=== PATIENT | female | born 1970 | race African-American/Black ===

== ENCOUNTER 2025-11-16 12:54 | Emergency (ER) | payer BC, SELFPAY ==
--- OUTSIDE RECORDS SUMMARY | 2025-08-31 05:00 | XMS_ITS ---
Author Organization [employer]. Address [address] [facility] [place] [address] Care Team Providers Care Beauty Director Name Role Phone Klaus Marks Primary Care Provider Fernandomitchel Brownlee, Curt Kevin [phone] REASON FOR VISIT pulm new Encounters Encounter Location Date Provider Diagnosis [facility] [address] [facility], FOURTH FLOOR [place] [address] 08/31/2025 Curt Brownlee Plan Of Treatment No Information Progress Notes * Kseina SAGE TDOB: 2 (55 yo F)Acc No.[id number]:08/31/2025 Progress Notes Patient: Derek Ksenia OLIVER :?Curt Brownlee MDDOB:1970???Age:55 Y ???Sex:FemaleDate:08/31/2025Phone:[phone]:[address] [place], [place] [id number]:Klaus Marks Subjective: * Chief Complaints: * 1 . Pulm new. * Medical History: Objective: * Vitals: Assessment: Plan: * Treatment: * Billing Information: * Visit Code: * Procedure Codes: * Electronic signature of Curt Brownlee MD on 11/16/2025 at 01:51 PM ESTSign off status: Pending * Provider: Derek Brownlee MD Date: 1 Generated for Printing/Faxing/eTransmitting on:?11/16/2025 01:51 PM EST
--- OUTSIDE RECORDS SUMMARY | 2025-11-04 09:58 | XMS_ITS | Encounter Summary ---
Author Organization [facility] Address [facility] [place] [address] Care Team Providers Care Home Health Specialist Name Role Phone Unavailable Primary Care Provider Unavailabl e Source Comments In the event this information is protected by the Federal Confidentiality of Alcohol and Drug AbusePatient Records regulations: The Federal rules restrict any use of the information to criminally investigate or prosecute any alcohol or drug abuse patient.[facility] Reason for Visit * Diagnostic Procedure Only (Routine) - ClosedSpecialtyDiagnoses / Procedures Referred By ContactReferred To ContactBR IMAGING Diagnoses Encounter for screening mammogram for malignant neoplasm of breast Procedures EMELYN SCREENING W BLU SCREENING DIGITAL BREAST TOMOSYNTHESIS BI SCREENING MAMMOGRAPHY BI 2-[place] [address] [place] [address] Phone: tel: fax: [facility] [place] [address] Referral IDStatusReasonStart DateExpiration DateVisits RequestedVisits [id number] Auto-Generated Referral Encounter Details DateTypeDepartmentCare Team (Latest Contact Info)Wanbgfkpbss94/17/2025 9:58 AM EST - 11/04/2025 11:59 PM ESTHospital Encounter Mammography [address] [place] [address] Encounter for screening mammogram for malignant neoplasm of breast [Z12.31] Discharge Disposition: Home Social History Tobacco UseTypesPacks/DayYears UsedDateSmoking Tobacco: Never AssessedArea Deprivation IndexAnswerDate RecordedNational Score (1-100), lower number is lower zapa211111/02/2025State Score (1-10), lower number is lower uezn36901/03/2025 Data from: https://www.neighborhoodatlas.medicine.[facility].edu/. Last address used for [id number]11/02/2025CommentsNoSex and Gender InformationValueDate RecordedSex Assigned at BirthNot on fileLegal SexFemale 08/17/2025 2:46 PM EDTGender IdentityNot on fileSexual OrientationNot on file documented as of this encounter Medications at Time of Discharge MedicationSigDispense QuantityRefillsLast FilledStart DateEnd Date diphenhydrAMINE-Acetaminophen (TYLENOL PM EXTRA STRENGTH) 25-500 mg tab Take 1 tablet by mouth.02/10/2020 albuterol HFA (PROVENTIL HFA, VENTOLIN HFA) 90 mcg/actuation inhaler Inhale 2 puffs as instructed every 6 hours as needed.09/17/2024 amLODIPine (NORVASC) 5 mg tablet Take 5 mg by mouth.08/28/2018 aspirin 325 mg tablet Take 325 mg by mouth once daily.04/21/2013 belimumab (BENLYSTA) 200 mg/mL auto-injector Inject 200 mg subcutaneously one time a week.05/12/2025 budesonide (PULMICORT) 0.25 mg/2 mL nebulizer solution 01/24/2017 cevimeline (EVOXAC) 30 mg capsule Take 30 mg by mouth.01/14/2020 Cholecalciferol, Vitamin D3, 25 mcg (1,000 unit) cap Take 1 capsule by mouth once daily.08/20/2017 clobetasol (TEMOVATE) 0.05 % cream Apply to affected area.06/04/2017 diclofenac, EC, (VOLTAREN) 50 mg EC tablet Take 50 mg by mouth.01/28/2025 estradiol (ESTRACE) 0.01 % (0.1 mg/gram) vaginal cream 07/10/2024 fluticasone-salmeterol (ADVAIR DISKUS) 250-50 mcg/dose inhaler Inhale 1 puff as instructed once daily.12/10/2019 folic acid 1 mg tablet once daily.04/28/2011 furosemide (LASIX) 20 mg tablet Take 20 mg by mouth once daily.07/14/2024 gabapentin (NEURONTIN) 300 mg capsule Take 300 mg by mouth daily at bedtime.01/08/2024 hydrocortisone 2.5 % cream Apply to affected area.02/20/2017 hydrOXYchloroQUINE (PLAQUENIL) 200 mg tablet Take 400 mg by mouth once daily.02/10/2020 ipratropium (ATROVENT) 0.02 % nebulizer solution 0.5 mg.02/20/2017 lisinopril (ZESTRIL) 40 mg tablet 03/24/2025 multivitamin with minerals (VISION/OPTIGEN) tablet Take 1 tablet by mouth.02/20/2017 mycophenolate Mofetil (CELLCEPT) 500 mg tablet 500 mg.06/06/2024 nystatin (MYCOSTATIN) 100,000 unit/mL suspension 500,000 Units.11/13/[address] (PROTONIX) 40 mg tablet TAKE 1 TABLET (40 MG TOTAL) TWICE A DAY (TAKE 30 MINUTES BEFORE BREAKFAST AND DINNER)11/22/2017 Phentermine HCl 37.5 mg tablet 10/20/2024 predniSONE (DELTASONE) 5 mg tablet 5 mg once daily.02/25/2020 senna-docusate (SENNA-S) 8.6-50 mg per tablet Take 2 tablets by mouth.12/12/2024 sulfamethoxazole-trimethoprim (BACTRIM DS) 800-160 mg per tablet Take 1 tablet by mouth every 48 hours. tretinoin (RETIN-A) 0.05 % cream APPLY A PEA-SIZED AMOUNT TO HANDS AT DFXUDTN9706/05/2022 ubrogepant (UBRELVY) 100 mg tablet Take 100 mg by mouth.3documented as of this encounter Plan of Treatment DateTypeDepartmentCare Team (Latest Contact Info)Fbczyesbqnh30/30/2025 9:00 AM ESTOffice Visit OB/Gynecology [address] [place] [address] [place] [address] [place] [address] annual papdocumented as of this encounter Procedures Procedure NamePriorityDate/TimeAssociated DiagnosisCommentsMAM SCREENING W BLU Ogkipdn5711/04/2025 10:21 AM EST Encounter for screening mammogram for malignant neoplasm of breast documented in this encounter Results * EMELYN SCREENING W BLU (11/04/2025 10:21 AM EST)Anatomical RegionLaterality ModalityBreastOtherSpecimen (Source)Anatomical Location / LateralityCollection Method / VolumeCollection TimeReceived Time11/04/2025 10:21 AM EST Impressions 11/07/2025 8:00 AM EST IMPRESSION: There is no mammographic evidence of malignancy. Routine screening mammogram is recommended. Annual mammogram will be due in 1 year. BI-RADS Category 2: Benign RISK: Due to the reported patient's history, the patient's estimated lifetime risk of developing breast cancer cannot be assessed at this time. We encourage all patients to talk with their providers about their risk assessment, further recommendations for managing breast health, and appropriate supplemental screening options if the patient has dense breast tissue. Interpreting Radiologist: Yuki Burton M.D. Electronically signed on: 11/07/2025 Hat Blocking Machine Operator: [email or web address] Transcribe Date/Time: Nov 04 2025 10:03A Dictated by: YUKI BURTON MD This examination was interpreted and the report reviewed and electronically signed by: YUKI BURTON MD on Nov 07 2025 ??7:54AM ??EST Narrative 11/07/2025 8:00 AM EST * * *Final Report* * * DATE OF EXAM: Nov 04 2025 10:21AM ?? CHW ?? [id number] ??- ??EMELYN SCREENING W BLU ??/ PROCEDURE REASON: Encounter for screening mammogram for malignant neoplasm of breast ? * * * * Physician Interpretation * * * * RESULT: [facility] [address] [place] [address] #[id number] - EMELYN SCREENING W BLU HISTORY: 55 year-old patient presents for screening. Patient is asymptomatic. The patient has the following personal history of breast cancer: ??breast cancer in the right breast in 2013. COMPARISON STUDIES: The present examination has been compared to prior imaging studies dated 11/09/2022 (mammography), 02/15/2023 (mammography), 11/14/2023 (mammography), 10/24/2024 (mammography) and 03/27/2025 (mammography). MAMMOGRAM TECHNIQUE: The study was acquired using full field digital technology and interpreted from soft copy. Digital Breast Tomosynthesis (DBT) images were obtained and used to assist in the interpretation of this examination. MAMMOGRAM FINDINGS: There are scattered areas of fibroglandular density. There are no significant interval changes. The patient is status post right lumpectomy with post operative changes. No suspicious mass, calcifications, or other abnormality is seen in either breast. Procedure Note Provider, [facility] - 11/07/2025 * * *Final Report* * * DATE OF EXAM: Nov 04 2025 10:21AM [facility] [address] - [facility] SCREENING W BLU / PROCEDURE REASON: Encounter for screening mammogram for malignant neoplasm of breast * * * * Physician Interpretation * * * * RESULT: [facility] [address] [place] [address] #[id number] - [facility] SCREENING W BLU HISTORY: 55 year-old patient presents for screening. Patient is asymptomatic. The patient has the following personal history of breast cancer: breast cancer in the right breast in 2012. COMPARISON STUDIES: The present examination has been compared to prior imaging studies dated 11/09/2022 (mammography), 02/15/2023 (mammography), 11/14/2023 (mammography), 10/24/2024 (mammography) and 03/27/2025 (mammography). MAMMOGRAM TECHNIQUE: The study was acquired using full field digital technology and interpreted from soft copy. Digital Breast Tomosynthesis (DBT) images were obtained and used to assist in the interpretation of this examination. MAMMOGRAM FINDINGS: There are scattered areas of fibroglandular density. There are no significant interval changes. The patient is status post right lumpectomy with post operative changes. No suspicious mass, calcifications, or other abnormality is seen in either breast. IMPRESSION IMPRESSION: There is no mammographic evidence of malignancy. Routine screening mammogram is recommended. Annual mammogram will be due in 1 year. BI-RADS Category 2: Benign RISK: Due to the reported patient's history, the patient's estimated lifetime risk of developing breast cancer cannot be assessed at this time. We encourage all patients to talk with their providers about their risk assessment, further recommendations for managing breast health, and appropriate supplemental screening options if the patient has dense breast tissue. Interpreting Radiologist: Yuki Burton M.D. Electronically signed on: 11/07/2025 Hat Blocking Machine Operator: [email or web address] Transcribe Date/Time: Nov 04 2025 10:03A Dictated by: YUKI BURTON MD This examination was interpreted and the report reviewed and electronically signed by: YUKI BURTON MD on Nov 07 2025 7:54AM EST Authorizing ProviderResult TypeResult StatusHalle Dick MDMAM-PAMAFinal Result documented in this encounter Visit Diagnoses Diagnosis Encounter for screening mammogram for malignant neoplasm of breast Other screening mammogram documented in this encounter
[2025-11-16 13:00] VITALS: BP 126/78; PULSE 105; TEMP 37.1; O2SAT 100; BMI 32.6
--- NOTE | 2025-11-16 13:13 | ED.GENADUL1 ---
HPI HPI - General Adult General Chief complaint: Abdominal Pain Stated complaint: URINARY ISSUES, R SIDED BACK PAIN, FEVER Time Seen by Provider: 11/16/25 12:57 Source: patient Mode of arrival: walk-in Limitations: no limitations History of Present Illness HPI narrative: 55-year-old female presents for right flank pain. She is worried about having a kidney infection or kidney stone. Symptoms started a week ago. She states she has had temperature of 100.5 degrees at home. No gross hematuria and no left-sided pain. No abdominal pain or vomiting. Related Data Previous Rx's ?Medication ?Instructions ?Recorded ibuprofen 800 mg tablet 800 mg PO Q8H PRN pain #20 tabs 11/16/25 methocarbamol 500 mg tablet 500 mg PO Q8H PRN pain #20 tabs 11/16/25 Allergies Allergy/AdvReac Type Severity Reaction Status Date / Time No Known Drug Allergies Allergy Verified 11/16/25 12:59 Opioid HPI Opioid Management Most Recent Opioid Data: Last Pain Scale 7 Today, 14:32 Last MAR Pain Assessment Today, 14:32 Review of Systems ROS Narrative A ten point review of systems is negative except as noted above. PFSH PFSH Social History Little interest or pleasure in doing things: not at all Feeling down, depressed, or hopeless: not at all Exam Narrative Exam Narrative: Nurses note and vital signs reviewed General:The patient appears well and in no apparent distress. Patient is resting comfortably on cart. Skin:Warm, dry, no pallor noted.There is no rash noted. Head:Normocephalic, atraumatic Eye: Normal conjunctiva, no drainage Ears, Nose, Mouth, and Throat: oral mucosa is moist. Nares patent. Cardiovascular:Regular Rate and Rhythm Respiratory:Patient is in no distress, no accessory muscle use, lungs are clear to auscultation, no wheezing, rales or rhonchi Back:non-tender, no CVA tenderness bilaterally to percussion. No bruise or rash. GI: Soft and nontender Musculoskeletal: The patient has no evidence of calf tenderness, no pitting edema, symmetrical pulses noted bilaterally Neurological:A&O, normal speech Psychiatric:Cooperative Constitutional Vital Signs, click to edit/add: Last Vital Signs Temp 98.7 F 11/16/25 13:00 Pulse 105 H 11/16/25 13:00 Resp 20 11/16/25 13:00 BP 126/78 11/16/25 13:00 Pulse Ox 100 11/16/25 13:00 O2 Del Method Room Air 11/16/25 13:00 Course Vital Signs Vital signs: Vital Signs Temperature 98.7 F 11/16/25 13:00 Pulse Rate 105 H 11/16/25 13:00 Respiratory Rate 20 11/16/25 13:00 Blood Pressure 126/78 11/16/25 13:00 Pulse Oximetry 100 11/16/25 13:00 Oxygen Delivery Method Room Air 11/16/25 13:00 Temperature 98.7 F 11/16/25 13:00 Pulse Rate 105 H 11/16/25 13:00 Respiratory Rate 20 11/16/25 13:00 Blood Pressure 126/78 11/16/25 13:00 Pulse Oximetry 100 11/16/25 13:00 Oxygen Delivery Method Room Air 11/16/25 13:00 Medical Decision Making MDM Narrative Medical decision making narrative: CAT scan shows stone in the left kidney and none on the right side where her symptoms are. The rest of her workup is negative and she will be treated symptomatically. Treatment diagnosis and follow-up were discussed with the patient. Differential Diagnosis Differential Diagnosis: Kidney stone, UTI, pyelonephritis, muscle strain Lab Data Lab results reviewed: Yes I reviewed the patient's lab results Labs: Lab Results 11/16/25 11/16/25 Range/Units 13:25 13:49 WBC 4.0 (4.0-11.0) 10^3/uL RBC 4.07 L (4.20-5.40) 10^6/uL Hgb 11.3 L (12.0-16.0) g/dL Hct 34.2 L (36.0-48.0) % MCV 84.0 (81.0-99.0) fL MCH 27.8 (26.7-34.0) pg MCHC 33.0 (29.9-35.2) g/dL RDW 12.9 (11.0-15.0) % Plt Count 289 (150-450) 10^3/uL MPV 9.1 L (9.5-13.5) fL Neut % (Auto) 61.0 (43.0-75.0) % Lymph % (Auto) 22.7 (20.5-60.0) % Heard % (Auto) 14.4 H (1.7-12.0) % Eos % (Auto) 1.3 (0.9-7.0) % Baso % (Auto) 0.3 (0.2-2.0) % Neut # (Auto) 2.4 (1.4-6.5) 10^3/uL Lymph # (Auto) 0.9 L (1.2-3.8) 10^3/uL Heard # (Auto) 0.6 (0.3-0.8) 10^3/uL Eos # (Auto) 0.1 (0.0-0.7) 10^3/uL Baso # (Auto) 0.0 (0.0-0.1) 10^3/uL Abs Immat Gran (auto) 0.01 (0.00-0.03) 10^3/uL Imm/Tot Granulo (auto) 0.3 (0.0-0.5) % Sodium 144 (136-145) mmol/L Potassium 3.8 (3.5-5.1) mmol/L Chloride 109 H (98-107) mmol/L Carbon Dioxide 27.1 (21.0-32.0) mmol/L Anion Gap 11.7 BUN 7.0 (7.0-18.0) mg/dL Creatinine 0.67 (0.55-1.02) mg/dL Est GFR ( Amer) >60 (>=60 mL/min/1.73m^2) Est GFR (Non-Af Amer) >60 (>=60 mL/min/1.73m^2) BUN/Creatinine Ratio 10.4 Glucose 106 (74-106) mg/dL Calcium 8.7 (8.5-10.1) mg/dL Urine Color Lt. yellow (YELLOW) Urine Clarity Clear (CLEAR) Urine pH 6.0 (5.0-9.0) Ur Specific [place] 1.015 (1.005-1.025) Urine Protein Trace (NEG/TRACE) mg/dL Urine Glucose (UA) Negative (NEGATIVE) mg/dL Urine Ketones Negative (NEGATIVE) mg/dL Urine Occult Blood Trace-i (NEGATIVE) Urine Nitrite Positive A (NEGATIVE) Urine Bilirubin Negative (NEGATIVE) Urine Urobilinogen 0.2 (0.2-1.0) EU/dL Ur Leukocyte Esterase Negative (NEGATIVE) Urine RBC 0-2 (0-2) #/HPF Urine WBC None seen (NONE SEEN) #/HPF Ur Squamous Epith Cells Few A (NONE/RARE) #/LPF Urine Crystals None seen (None Seen) #/HPF Urine Bacteria Trace A (NONE SEEN) #/HPF Urine Casts None seen (NONE SEEN) #/LPF Urine Mucus Trace A (NONE SEEN) Ur Culture Indicated? No Imaging Data CT scan - abdomen: Radiologist's impression: ITS Impressions Abdomen/Pelvis CT 11/16/25 14:52 IMPRESSION: No bowel obstruction or obstructive uropathy. There is a 1 cm stone in the left renal collecting system. There is a normal appendix in the right lower quadrant. Impression dictated by: Mati Bhandari M.D. 11/16/2025 3:16 PM Dictation Location: [employer] Payment Electronically authenticated by: [id number] Y Date: 11/16/2025 15:16 Discharge Plan Discharge Chief Complaint: Abdominal Pain Clinical Impression: Right flank pain Patient Disposition: Home, Self-Care Time of Disposition Decision: 15:25 Condition: Good Mode of Transportation: Private Vehicle Prescriptions / Home Meds: New methocarbamol 500 mg tablet 500 mg PO Q8H PRN (Reason: pain) Qty: 20 0RF ibuprofen 800 mg tablet 800 mg PO Q8H PRN (Reason: pain) Qty: 20 0RF Print Language: German Instructions: Flank Pain (ED) Referrals: Physician,Non-Staff, MD [Primary Care Provider] - 1 week
[2025-11-16 13:31] LABS: Hematocrit 34.2 % (36.0-48.0); Hemoglobin 11.3 g/dL (12.0-16.0); Immature Granulocytes Abs Auto 0.01 10^3/uL (0.00-0.03); Immature Granulocytes Pct Auto 0.3 % (0.0-0.5); Lymphocytes Absolute Auto 0.9 10^3/uL (1.2-3.8); Mean Corpuscular HGB Conc 33.0 g/dL (29.9-35.2); Mean Corpuscular Hemoglobin 27.8 pg (26.7-34.0); Mean Corpuscular Volume 84.0 fL (81.0-99.0); Platelet Count 289 10^3/uL (150-450); Red Blood Count 4.07 10^6/uL (4.20-5.40); White Blood Count 4.0 10^3/uL (4.0-11.0)
[2025-11-16 13:40] LABS: Anion Gap 11.7; Blood Urea Nitrogen 7.0 mg/dL (7.0-18.0); Calcium 8.7 mg/dL (8.5-10.1); Carbon Dioxide 27.1 mmol/L (21.0-32.0); Chloride 109 mmol/L (98-107); Estimated GFR (African America >60 (>=60 mL/min/1.73m^2); Estimated GFR (Non-African Ame >60 (>=60 mL/min/1.73m^2); Glucose 106 mg/dL (74-106); Potassium 3.8 mmol/L (3.5-5.1); Sodium 144 mmol/L (136-145)
--- OUTSIDE RECORDS SUMMARY | 2025-11-16 13:51 | XMS_ITS | Patient Health Record ---
Author Organization [employer]. Address [address] [facility] [address] [place] [address] Care Team Providers Care Principal Engineer Name Role Phone Klaus Marks Primary Care Provider Elda Brownlee, Nov [phone] Reason For Referral No Information Plan Of Treatment No Information
--- OUTSIDE RECORDS SUMMARY | 2025-11-16 13:51 | XMS_ITS | Clinical Summary ---
Author Organization [facility] Address [address] [place] [address] Care Team Providers Care Medical Art Therapist Name Role Phone Unavailable Primary Care Provider Unavailabl e Allergies No known active allergies Encounters DateTypeDepartmentCare EfbcBhynllearos09/20/2025 3:15 PM ESTAncillary Procedure [facility] [address] [place] [phone] Pelvic and perineal pain10/08/20255879Qnyxiz41/19/2025 3:30 PM ESTAncillary Procedure [facility] [address] [place] [phone] 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; Systemic lupus erythematosus, unspecified (HCC); Glomerular disease in systemic lupus erythematosus (HCC)10/07/2025Travel 10/06/2025Travelfrom Last 3 Months Social History Tobacco UseTypesPacks/DayYears UsedDateSmoking Tobacco: Never Assessed CommentsUnknownSex and Gender InformationValueDate RecordedSex Assigned at Not on fileLegal QzwUisobk91/30/2025 12:27 PM EDTGender IdentityNot on file Sexual OrientationNot on file Plan of Treatment Health MaintenanceDue DateLast DoneCommentsCT Ntdwvkpirlkr1972FIT-DNA 1970FOBT08/27/19724277Stqwpnqwwdamh31/09/6483XDL66/ Mzvwnwtzahd27Colorectal Cancer Zkgoahlwf09/13/2025Mammogram 605/07/2025, 03/27/2025, 10/24/2024, Additional history existsPap Smear , 06/19/2024, 06/19/2024, Additional history existsCervical Cancer Ulfckakye84/01/2029HPV/Xvfuex18, 10/17/2021Influenza CpdllcoXzjhplntr94/10/2025, 11/06/2023, 08/15/2022, Additional history exists Pneumococcal Vaccine: Pediatrics (0 to 5 Years) and At-Risk Patients (6 to 64 Years)Aged OutNo longer eligible based on patient's age to complete this topic Procedures Procedure NamePriorityDate/TimeAssociated DiagnosisCommentsCT ABDOMEN PELVIS W IV JSOIRZITWpbjdry16/20/2025 3:23 PM EST Pelvic and perineal pain DEXA BONE DFCRRSSIktlwkm59/19/2025 3:58 PM EST 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 Systemic lupus erythematosus, unspecified (HCC) Glomerular disease in systemic lupus erythematosus (HCC) from Last 3 Months Results * CT abdomen pelvis w IV contrast (10/08/2025 3:23 PM EST)Anatomical Region LateralityModalityBody, Pelvis, AbdomenComputed TomographySpecimen (Source) Anatomical Location / LateralityCollection Method / VolumeCollection Time Received Time10/09/2025 9:42 AM EST Impressions 10/09/2025 9:48 AM EST No acute process in the abdomen/pelvis. Nonobstructing 8 mm left lower pole calculus. Fluid in the distal esophagus, suggestive of reflux. ELECTRONICALLY SIGNED BY: Gregg Fang MD Narrative 10/09/2025 9:48 AM EST HISTORY: Pelvic and perineal pain. TECHNIQUE: CT of the abdomen and pelvis was performed using standard technique with intravenous contrast, scanning from just above the dome of the diaphragm to the symphysis pubis. ??Including delayed images through the kidneys. Including sagittal and coronal reconstructions on both phases. All CT scans at this facility use dose modulation, iterative reconstruction, and/or weight based dosing when appropriate to reduce radiation dose to as low as reasonably achievable. COMPARISON: None. RESULT: Liver: No mass or lesion. Biliary: Gallbladder unremarkable. No biliary ductal dilation. Pancreas: No mass or duct dilation. Spleen: No mass or splenomegaly. ?? Adrenals: No mass. Kidneys: 8 mm calculus left lower pole. No hydronephrosis. Few small simple cysts. No suspicious lesions. Delayed phase imaging unremarkable. GI tract: Fluid in the distal esophagus, suggestive of reflux. No bowel dilation. No evidence for diverticulitis or appendicitis. Lymph nodes: No abdominal or pelvic lymphadenopathy. Mesentery/Peritoneum/Retroperitoneum: No ascites or mass. Vasculature: ??The celiac axis and SMA are patent. The portal vein and branches, splenic vein, SMV,and hepatic veins are patent. ??No abdominal aortic or iliac artery aneurysm. Pelvis: No significant free fluid. Uterus grossly unremarkable. Bladder decompressed. Clips or coils in the adnexal regions. Bones: No acute osseous findings. ?? Soft tissues: Unremarkable. Lower thorax: Scarring/atelectasis at the lung bases. Fluid within the distal esophagus, suggestiveof reflux. Procedure Note Gregg Fang MD - 10/09/2025 HISTORY: Pelvic and perineal pain. TECHNIQUE: CT of the abdomen and pelvis was performed using standardtechnique with intravenous contrast, scanning from just above the dome ofthe diaphragm to the symphysis pubis. Including delayed images throughthe kidneys. Including sagittal and coronal reconstructions on bothphases. All CT scans at this facility use dose modulation, iterativereconstruction, and/or weight based dosing when appropriate to reduceradiation dose to as low as reasonably achievable. COMPARISON: None. RESULT: Liver: No mass or lesion. Biliary: Gallbladder unremarkable. No biliary ductal dilation. Pancreas: No mass or duct dilation. Spleen: No mass or splenomegaly. Adrenals: No mass. Kidneys: 8 mm calculus left lower pole. No hydronephrosis. Few smallsimple cysts. No suspicious lesions. Delayed phase imaging unremarkable. GI tract: Fluid in the distal esophagus, suggestive of reflux. No boweldilation. No evidence for diverticulitis or appendicitis. Lymph nodes: No abdominal or pelvic lymphadenopathy. Mesentery/Peritoneum/Retroperitoneum: No ascites or mass. Vasculature: The celiac axis and SMA are patent. The portal vein andbranches, splenic vein, SMV, and hepatic veins are patent. No abdominalaortic or iliac artery aneurysm. Pelvis: No significant free fluid. Uterus grossly unremarkable. Bladder decompressed. Clips or coils in the adnexal regions. Bones: No acute osseous findings. Soft tissues: Unremarkable. Lower thorax: Scarring/atelectasis at the lung bases. Fluid within thedistal esophagus, suggestive of reflux. IMPRESSION: No acute process in the abdomen/pelvis. Nonobstructing 8 mm left lower pole calculus. Fluid in the distal esophagus, suggestive of reflux. ELECTRONICALLY SIGNED BY: Gregg Fang MD Authorizing ProviderResult TypeResult StatusBenjamin Petbellwood [facility] MDSH[facility] PROCEDURES Final Result * DEXA bone density (10/07/2025 3:58 PM EST)Anatomical RegionLateralityModality BodyDigital RadiographySpecimen (Source)Anatomical Location / Laterality Collection Method / VolumeCollection TimeReceived Time10/08/2025 11:14 AM EST Impressions 10/08/2025 11:15 AM EST Impression: Findings compatible with borderline mild/moderate osteopenia with borderline mild/moderate increased fracture risk. ELECTRONICALLY SIGNED BY: Trevor Morales M.D. 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 T score values for the lumbar spine, right femoral neck and left femoral neck were obtained. Comparison: None Findings: Value for the lumbar spine from L1-L4 is -0.4. Value for the right femoral neck is -1.5. Value for the left femoral neck is -1.4. Findings are compatible with borderline mild/moderate osteopenia with borderline mild/moderate increased fracture risk. No evidence of osteoporosis. 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 T score values for the lumbarspine, right femoral neck and left femoral neck were obtained. Comparison: None Findings: Value for the lumbar spine from L1-L4 is -0.4. Value for theright femoral neck is -1.5. Value for the left femoral neck is -1.4.Findings are compatible with borderline mild/moderate osteopenia withborderline mild/moderate increased fracture risk. No evidence ofosteoporosis. IMPRESSION: Impression: Findings compatible with borderline mild/moderate osteopeniawith borderline mild/moderate increased fracture risk. ELECTRONICALLY SIGNED BY: Trevor Morales M.D. Authorizing ProviderResult TypeResult StatusAmanMon Health Medical Center DXA PROCEDURES Final Result from Last 3 Months Insurance
--- OUTSIDE RECORDS SUMMARY | 2025-11-16 13:51 | XMS_ITS | Clinical Summary ---
Author Organization [facility] Address [address] [place], [place] [address] Care Team Providers Care Vice Investigator Name Role Phone Unavailable Primary Care Provider Unavailabl e Allergies No known active allergies Medications MedicationSigDispense QuantityRefillsLast FilledStart DateEnd DateStatus diphenhydrAMINE-Acetaminophen (TYLENOL PM EXTRA STRENGTH) 25-500 mg tab Take 1 tablet by mouth.02/10/2020Active albuterol HFA (PROVENTIL HFA, VENTOLIN HFA) 90 mcg/actuation inhaler Inhale 2 puffs as instructed every 6 hours as needed.4Active amLODIPine (NORVASC) 5 mg tablet Take 5 mg by mouth.08/28/2018Active aspirin 325 mg tablet Take 325 mg by mouth once daily.04/21/2013ctive belimumab (BENLYSTA) 200 mg/mL auto-injector Inject 200 mg subcutaneously one time a week.5Active budesonide (PULMICORT) 0.25 mg/2 mL nebulizer solution 01/24/2017Active cevimeline (EVOXAC) 30 mg capsule Take 30 mg by mouth.01/14/2020Active Cholecalciferol, Vitamin D3, 25 mcg (1,000 unit) cap Take 1 capsule by mouth once daily.08/20/2017Active clobetasol (TEMOVATE) 0.05 % cream Apply to affected area.06/04/2017Active diclofenac, EC, (VOLTAREN) 50 mg EC tablet Take 50 mg by mouth.5Active estradiol (ESTRACE) 0.01 % (0.1 mg/gram) vaginal cream 4Active fluticasone-salmeterol (ADVAIR DISKUS) 250-50 mcg/dose inhaler Inhale 1 puff as instructed once daily.12/10/2019Active folic acid 1 mg tablet once daily.04/28/2011ctive furosemide (LASIX) 20 mg tablet Take 20 mg by mouth once daily.07/14/2024ctive gabapentin (NEURONTIN) 300 mg capsule Take 300 mg by mouth daily at bedtime.01/08/2024ctive hydrocortisone 2.5 % cream Apply to affected area.02/20/2017Active hydrOXYchloroQUINE (PLAQUENIL) 200 mg tablet Take 400 mg by mouth once daily.02/10/2020Active ipratropium (ATROVENT) 0.02 % nebulizer solution 0.5 mg.02/20/2017Active lisinopril (ZESTRIL) 40 mg tablet 03/24/2025tive multivitamin with minerals (VISION/OPTIGEN) tablet Take 1 tablet by mouth.02/20/2017Active mycophenolate Mofetil (CELLCEPT) 500 mg tablet 500 mg.06/06/2024ctive nystatin (MYCOSTATIN) 100,000 unit/mL suspension 500,000 Units.11/13/[address] (PROTONIX) 40 mg tablet TAKE 1 TABLET (40 MG TOTAL) TWICE A DAY (TAKE 30 MINUTES BEFORE BREAKFAST AND DINNER)11/22/2017Active Phentermine HCl 37.5 mg tablet 10/20/2024ctive predniSONE (DELTASONE) 5 mg tablet 5 mg once daily.02/25/2020Active senna-docusate (SENNA-S) 8.6-50 mg per tablet Take 2 tablets by mouth.5Active sulfamethoxazole-trimethoprim (BACTRIM DS) 800-160 mg per tablet Take 1 tablet by mouth every 48 hours.Active tretinoin (RETIN-A) 0.05 % cream APPLY A PEA-SIZED AMOUNT TO HANDS AT BTRFBDJ5206/05/2022ctive ubrogepant (UBRELVY) 100 mg tablet Take 100 mg by mouth.3Active Encounters DateTypeDepartmentCare NcuqXxkdutepoex45/17/2025 9:58 AM EST - 11/04/2025 11:59 PM ESTHospital Encounter Mammography [address] [facility] [place] [address] Encounter for screening mammogram for malignant neoplasm of breast [Z12.31] Discharge Disposition: Home2025 3:00 PM EDTVisit (SP) Office Hematology/Oncology [address] [place] [address] Rhianna Jennings MD History of breast cancer (Primary Dx); Encounter for screening mammogram for malignant neoplasm of ltzzmy7808/26/2025 Travelfrom Last 3 Months Social History Tobacco UseTypesPacks/DayYears UsedDateSmoking Tobacco: Never AssessedArea Deprivation IndexAnswerDate RecordedNational Score (1-100), lower number is lower iyhy189411/02/2025State Score (1-10), lower number is lower vcck64901/03/2025 Data from: https://www.neighborhoodatlas.medicine.[facility].edu/. Last address used for g[address] [facility]11/02/2025CommentsNoSex and Gender InformationValueDate RecordedSex Assigned at BirthNot on fileLegal SexFemale 08/17/2025 2:46 PM EDTGender IdentityNot on fileSexual OrientationNot on file Last Filed Vital Signs Vital SignReadingTime TakenCommentsBlood Kkefcpkn236/5908/27/2025 3:09 PM EDT Okctd080008/27/2025 3:09 PM PRKZelnfqnqhjz20.4 ??C (97.6 ??F)2025 3:09 PM EDTRespiratory Ckbc6967 3:09 PM EDTOxygen Aawzqxyyjm41%2025 3:09 PM EDTreynaudsInhaled Oxygen Concentration--[place]08.8 kg (206 lb 12.7 oz) 2025 3:09 PM EDTwith uxsdbRknuon714.3 cm (5' 3.9 )2025 3:09 PM EDT with shoesBody Mass Index35.6108/27/2025 3:09 PM EDT Plan of Treatment DateTypeDepartmentCare Team (Latest Contact Info)Enwawtxtxjs25/30/2025 9:00 AM ESTOffice Visit OB/Gynecology [address] [place] [address] [place] [address] [place] [address] annual papHealth MaintenanceDue DateLast DoneCommentsCervical Cancer Screening 1983Anxiety Wltedhhqb44/09/1990Depression Bkcoetwoz71/09/1990HIV Screening 1990Hepatitis C Pipgvarsc59/09/1990DTaP,Tdap,Td Vaccine (1 - Tdap) 1991Hepatitis B Vaccine (1 of 3 - 19+ 3-dose series)1991CT Ljkeitddlmhd98/09/2017Cologuard (FIT-DNA)08/27/20173895Rptfwcevgna88/09/2017 Colorectal Cancer Lshumlcen21/09/2017Fecal Occult Blood2017Sigmoidoscopy 2017Covid-19 Vaccine (2 - Pfizer risk series)/1RSV Vaccine (1 - Risk 50-74 years 1-dose series)2022Influenza Vaccine (#1) 512/, 08/15/2022, 10/05/2021, Additional history existsMammogram Rfwonuhnh53/17/520023/, 03/27/2025, 10/24/2024, Additional history existsDiabetes Bwsqsllaa02/23/117164/, 05/11/2025, 02/20/2025, Additional history existsLipid Qzklxomyr94/06/649719/04/2023Shingrix VaccineCompleted 03/10/2023, 01/09/2023neumococcal Vaccine: 50+Qatxkjpmv27/24/2025, 05/15/2012, 11/19/2005 Procedures Procedure NamePriorityDate/TimeAssociated DiagnosisCommentsMAM SCREENING W BLU Wbequdu2411/04/2025 10:21 AM EST Encounter for screening mammogram for malignant neoplasm of breast from Last 3 Months Results * EMELYN SCREENING W BLU (11/04/2025 [...] patient has dense breast tissue. Interpreting Radiologist: Lucretia Burton M.D. Electronically signed on: 11/07/2025 Evidence Specialist: SHAHZAD Transcribe Date/Time: Nov 04 2025 10:03A Dictated by: LUCRETIA BURTON MD This examination was interpreted and the report reviewed and electronically signed by: LUCRETIA BURTON MD on Nov 07 2025 ??7:54AM ??EST Narrative 11/07/2025 8:00 AM EST * * *Final Report* * * DATE OF EXAM: Nov 04 2025 10:21AM ?? CHW ?? 0582 ??- ??EMELYN SCREENING W BLU ??/ PROCEDURE REASON: Encounter for screening mammogram for malignant neoplasm of breast ? * * * * Physician Interpretation * * * * RESULT: [address] [place] [address] #[id number] - EMELYN SCREENING W BLU HISTORY: 55 year-old patient presents for screening. Patient is asymptomatic. The patient has the following personal history of breast cancer: ??breast cancer in the right breast in 2012. [...] seen in either breast. Procedure Note Provider, [facility] [place] - 11/07/2025 * * *Final Report* * * DATE OF EXAM: Nov 04 2025 10:21AM CHW 0582 - EMELYN SCREENING W BLU / PROCEDURE REASON: Encounter for screening mammogram for malignant neoplasm of breast * * * * Physician Interpretation * * * * RESULT: [facility] [address] [place] [address] #[id number] - EMELYN SCREENING W BLU HISTORY: 55 [...] patient has dense breast tissue. Interpreting Radiologist: Lucretia Burton M.D. Electronically signed on: 11/07/2025 Evidence Specialist: SHAHZAD Transcribe Date/Time: Nov 04 2025 10:03A Dictated by: LUCRETIA BURTON MD This examination was interpreted and the report reviewed and electronically signed by: LUCRETIA BURTON MD on Nov 07 2025 7:54AM EST Authorizing ProviderResult TypeResult StatusHalle Jennings MDMAM-PAMAFinal Result from Last 3 Months Insurance
[2025-11-16 13:55] LABS: Glucose Urine UA NEGATIVE (NEGATIVE)
[2025-11-16 14:04] LABS: Cast Seen? NONE SEEN #/LPF (NONE SEEN); Crystals Seen? None Seen #/HPF (None Seen); Urine Culture Indicated NO
[2025-11-16] MEDS: KETOROLAC TROMETHAMINE 30 MG/ML VIAL IVP (14:32)
--- NOTE | 2025-11-16 14:52 | CT_ITS ---
[address] [address] Patient Name: RENEE SAGE MRN: [id number] date: 1970 Sex: F Assigned Patient Location: ED.MAIN Current Patient Location: ED.MAIN Accession/Order Number: [id number] Exam Date: 11/16/2025 14:45 Report Date: 11/16/2025 15:16 At the request of: FLORECITA LEES MD Procedure: CT abdomen pelvis w con CT abdomen pelvis w con 11/16/2025 2:54 PM SIGNS AND SYMPTOMS: Right flank pain, urinary frequency TECHNIQUE: Multidetector ct axial images of the abdomen and pelvis were obtained with IV contrast. Multiplanar reformats were performed and reviewed to further define anatomy and possible pathology. CT was performed with one or more of the following dose reduction techniques: Automated exposure control, adjustment of the mA and/or kV according to patient size, or use of iterative reconstruction technique. COMPARISON: None. FINDINGS: Lower Chest: There is linear scarring or atelectasis in the lung bases bilaterally. ABDOMEN: Liver: Within normal limits. Bile Ducts: Normal caliber. Gallbladder: No calcified gallstones. Normal caliber wall. Pancreas: Within normal limits. Spleen: Within normal limits. Adrenals: Within normal limits. Kidneys: There is a 1 cm stone in the left renal collecting system. There is no hydronephrosis. Simple cysts are noted in the renal cortices requiring no further follow-up. Pelvis: Reproductive Organs: No pelvic masses. Ureters: Within normal limits. Bladder: Within normal limits. Bowel: Normal caliber. There is a normal appendix in the right lower quadrant. Mesenteric Lymph Nodes: No enlarged mesenteric lymph nodes. Peritoneum: No ascites or free air, no fluid collection. Vessels: Atherosclerotic changes are noted in the abdominal aorta. Retroperitoneum: Within normal limits. Abdominal Wall: Within normal limits. Bones: Within normal limits. CT/CT abdomen pelvis w con IMPRESSION: No bowel obstruction or obstructive uropathy. There is a 1 cm stone in the left renal collecting system. There is a normal appendix in the right lower quadrant. Impression dictated by: Mati Bhandari M.D. 11/16/2025 3:16 PM Dictation Location: [place] [address] Electronically authenticated by: [id number] Y Date: 11/16/2025 15:16
[2025-11-16 15:38] VITALS: BP 120/72; PULSE 64; O2SAT 98
== END 2025-11-16 15:40 | disposition home or self-care (01) ==
PROVIDERS: Emergency Provider Emergency Medicine
DX: R10.A1 Flank pain, right side (principal)
CPT/HCPCS: 36415; 74177; 80048; 81001; 85025; 96374; 99284; J1885; Q9967